=== PATIENT | female | born 1960 | race Caucasian/White ===

== ENCOUNTER 2016-12-22 18:59 | Emergency (ER) | payer OTHER | END 2016-12-22 20:39 | disposition home or self-care (01) | LOC: FER 18:59 | DX: K03.81 Cracked tooth (principal); I10 Essential (primary) hypertension; J45.909 Unspecified asthma, uncomplicated; Z88.2 Allergy status to sulfonamides; Z79.51 Long term (current) use of inhaled steroids; Z79.899 Other long term (current) drug therapy | CPT/HCPCS: 99282 ==